=== PATIENT | female | born 1955 | race Caucasian/White ===

== ENCOUNTER 2020-08-30 19:59 | Observation (INO) | payer MEDICARE, OTHER ==
[~2020-08-30] VITALS: Ht 152.4 cm; Wt 64.4 kg
[2020-08-30 22:15] VITALS: BP 128/65
[2020-08-31 04:00] VITALS: BP 138/63
[2020-08-31] MEDS ORDERED: METOPROLOL SUC100 MG PO (04:16)
[2020-08-31] MEDS ORDERED: ASA81BEC PO (04:16)
[2020-08-31] MEDS ORDERED: ATORVASTATIN CA80 MG PO (04:17)
[2020-08-31] MEDS ORDERED: METFORMIN HCL500 MG PO (04:18)
[2020-08-31] MEDS ORDERED: BRILINTA90 MG PO (04:18)
[2020-08-31] MEDS ORDERED: LOSARTAN POTASS50 MG PO (04:21)
[2020-08-31 08:00] VITALS: BP 112/56
[2020-08-31 09:29] LABS: ANION GAP 10 mmol/L (7-16); BUN 24 mg/dL (7-18); CALCIUM 8.8 mg/dL (8.5-10.1); CHLORIDE 103 mmol/L (98-107); CHOLESTEROL 120 mg/dL (<200); CO2 25 mmol/L (21-32); CREATININE 0.8 mg/dL (0.6-1.3); GLUCOSE 136 mg/dL (70-99); HDL CHOLESTEROL 35 mg/dL (>40); LDL CHOLESTEROL 59 mg/dL (<100); MAGNESIUM 2.1 mg/dL (1.8-2.4); POTASSIUM 3.6 mmol/L (3.5-5.1); SERUM ASSESSMENT Clear; SODIUM 138 mmol/L (136-145); TC:HDL 3.4 Ratio (Not establshd); TRIGLYCERIDE 133 mg/dL (<150); VLDL 27 mg/dL (<40)
[2020-08-31] MEDS ORDERED: NITROGLYCERIN0.4 MG SUBLING (10:26)
[2020-08-31] MEDS ORDERED: OMEPRAZOLE40 MG PO (10:26)
[2020-08-31 12:07] VITALS: BP 121/49
--- NOTE | 2020-08-31 12:41 | 2DMMODE ---
[place] [address] 2 D/M-MODE ECHOCARDIOGRAM Name: DARRELL HAIR Room: [address] M.R.#: [id number] Admission: 08/30/20 Attend Phys: Ash Ivey, Discharge: Date of : 53 Date of Service: 08/31/20 1240 Report #: [id number] THIS REPORT FOR: cc: Keyshawn Campbell MD, Syed MD Liston, Michael J. MD [facility] ~ APPROVED REPORT Study performed: 08/31/2020 10:10:48 EXAM: Comprehensive 2D, Doppler, and color-flow Echocardiogram Patient Location: In-Patient Room #: [facility] Status: routine BSA: 1.61 HR: 60 bpm BP: 112/56 mmHg Rhythm: NSR Other Information Study Quality: Good Indications Chest Pain 2D Dimensions IVSd: 12.48 (7-11mm) LVOT Diam: 20.48 (18-24mm) LVDd: 43.26 mm PWd: 11.23 (7-11mm) Ascending Ao: 35.25 (22-36mm) LVDs: 26.70 (25-40mm) Aortic Root: 33.66 mm Volumes Left Atrial Volume (Systole) LA ESV Index: 24.30 mL/m2 Aortic Valve AoV Peak Cyrus.: 1.19 m/s AO Peak Gr.: 5.68 mmHg LVOT Max P.67 mmHg AO Mean Gr.: 3.83 mmHg LVOT Mean P.50 mmHg LVOT Max V: 1.08 m/s AO V2 VTI: 27.79 cm LVOT Mean V: 0.73 m/s RYAN (VTI): 3.17 cm2 LVOT V1 VTI: 26.76 [place] [address] 2 D/M-MODE ECHOCARDIOGRAM Name: DARRELL HAIR Room: [address]#: [id number] Admission: 08/30/20 Attend Phys: Ash Ivey, Discharge: Date of : 53 Date of Service: 08/31/20 1240 Report #: [id number] Mitral Valve E/A Ratio: 0.63 MV Decel. Time: 356.48 ms MV E Max Cyrus.: 0.53 m/s MV PHT: 103.38 ms MVA (PHT): 2.13 cm2 TDI E/Lateral E': 7.57 E/Medial E': 8.83 Medial E' Cyrus.: 0.06 m/s Lateral E' Cyrus.: 0.07 m/s Pulmonary Valve PV Peak Cyrus.: 0.87 m/s PV Peak Gr.: 3.01 mmHg Left Ventricle The left ventricle is normal size. There is normal LV segmental wall motion. Mild concentric left ventricular hypertrophy. Left ventricular systolic function is normal. LVEF is 60-65%. Grade I - abnormal relaxation pattern. Right Ventricle The right ventricle is normal size. The right ventricular systolic function is normal. Atria The left atrium size is normal. The right atrium size is normal. Aortic Valve The aortic valve is normal in structure. No aortic regurgitation is present. There is no aortic valvular stenosis. Mitral Valve The mitral valve is normal in structure. There is no mitral valve regurgitation noted. No evidence of mitral valve stenosis. Tricuspid Valve The tricuspid valve is normal in structure. Unable to assess PA pressure. Trace tricuspid regurgitation. Pulmonic Valve The pulmonary valve is normal in structure. Trace pulmonic regurgitation[place] [address] 2 D/M-MODE ECHOCARDIOGRAM Name: DARRELL HAIR Room: [address]#: [id number] Admission: 08/30/20 Attend Phys: Ash Ivey, Discharge: Date of : 53 Date of Service: 08/31/20 1240 Report #: [id number] The aortic root is normal in size. IVC is normal in size and collapses >50% with inspiration. Pericardium There is no pericardial effusion. <Conclusion> The left ventricle is normal size. Mild concentric left ventricular hypertrophy. Left ventricular systolic function is normal. LVEF is 60-65%. Grade I - abnormal relaxation pattern. Trace tricuspid regurgitation. Trace pulmonic regurgitation. IVC is normal in size and collapses >50% with inspiration. <ELECTRONICALLY SIGNED> By: Narinder Sterling MD, FACC 08/31/20 1240 1240 1240 Narinder Sterling MD, FACC /INF
--- NOTE | 2020-08-31 12:44 | EKG ---
[place] [address] ELECTROCARDIOGRAM REPORT Name: DARRELL HAIR Room: [address]#: [id number] Admission: 08/30/20 Attend Phys: Ash Ivey, Discharge: Date of : 53 Date of Service: 08/30/20 2245 Report #: [id number] THIS REPORT FOR: //name// [facility] Test Date: 2020-08-30 Test Time: 22:45:12 Pat Name: DARRELL HAIR Department: Room: [address] Gender: F [employer] Umpire: THOWARD3 : 1955 Requested By: Ash Ivey Order Number: [id number] Ruma MD: Narinder Sterling Measurements Intervals [place] Rate: 53 P: 70 DE: 220 QRS: 39 QRSD: 85 T: 70 QT: 473 QTc: 445 Interpretive Statements Sinus rhythm Prolonged DE interval Anteroseptal infarct, old, possible No previous ECG available for comparison Electronically Signed On 08-31-2020 12:44:38 [employer] by Narinder Sterling [email or web address] <ELECTRONICALLY SIGNED> By: Narinder Sterling MD, FACC 08/31/20 1244 2245 2245 Narinder Sterling MD, [facility] /EPI
--- NOTE | 2020-08-31 14:54 | CON ---
[address] [address] CONSULTATION Name: DARRELL HAIR Room: [address] M.R.#: [id number] Admission: 08/30/20 Attend Phys: Ash Ivey MD Discharge: Date of : 53 Report #: [id number] THIS REPORT FOR: cc: Keyshawn Campbell MD, Syed MD ~ Narinder Sterling MD [facility] CONS[facility] INDICATION: Chest pain. HISTORY OF PRESENT ILLNESS: The patient is a very pleasant 65-year-old female with history of myocardial infarction with intervention at [facility] in 04/2020. She reports no issues subsequent to that until now. Last night, she had some midsternal chest discomfort for which she presented to outside Emergency Room with complaints of chest pain. She was given sublingual nitroglycerin with relief of her pain. She was transferred here for further telemetry monitoring. The patient's initial enzymes are negative x 3. Her EKG shows sinus rhythm without acute ST or T-wave abnormality. There are Q-waves in leads V1 and V2, possibly consistent with prior anteroseptal infarct. At the time of interview, she is in no distress and denies chest pain. She is not having any shortness of breath or orthopnea. She is without other cardiac complaint. PAST MEDICAL HISTORY: 1. Coronary artery disease. 2. Hypertension. 3. Hyperlipidemia. 4. Myocardial infarction in 04/2020. 5. Hepatitis C. 6. Cirrhosis. 7. Type 2 diabetes mellitus. FAMILY HISTORY: Noncontributory. SOCIAL HISTORY: The patient smokes cigarettes. She denies use of alcohol. PHYSICAL EXAMINATION: VITAL SIGNS: Blood pressure 112/56, pulse is 65 and regular. GENERAL: This is a pleasant female, in no distress. Mood and affect appropriate. HEENT: Extraocular muscles intact. Mucous membranes are moist. NECK: Shows no jugular venous distention. There are no carotid bruits. CHEST: Reveals clear lung pandey. I do not appreciate wheezes or rales. CARDIOVASCULAR: Reveals a regular rhythm with normal S1 and S2. I do not [place] [address] CONSULTATION Name: DARRELL HAIR Room: [address]#: [id number] Admission: 08/30/20 Attend Phys: Ash Ivey MD Discharge: Date of : 53 Report #: [id number] ABDOMEN: Reveals normal bowel sounds. The abdomen is soft and nontender. Bowel sounds present. EXTREMITIES: Shows no edema. SKIN: Dry. LABORATORY DATA: A 12-lead EKG shows sinus rhythm with no significant ST-segment depression or elevation. There are Q-waves in leads V1 and V2. Labs are reviewed. Troponins are less than 0.06 x3. IMPRESSION AND RECOMMENDATIONS: 1. Chest discomfort, concerning for unstable angina. There is no enzymatic or EKG evidence of myocardial infarct at this time. We will proceed with noninvasive stress testing and echocardiogram to further evaluate. Further intervention will be pending the results of those studies. 2. Hypertension, presently stable on current regimen. 3. Dyslipidemia. Continue current medications. Fasting lipid profile has been ordered and is pending. 4. Diabetes. Treatment per hospitalist and primary care physician. <ELECTRONICALLY SIGNED> By: Narinder Sterling MD, FACC 08/31/20 1454 0913 0933Narinder Sterling MD, FACC /nt
--- NOTE | 2020-08-31 17:06 | CARDNUC ---
[place] [address] CARDIAC NUCLEAR IMAGING REPORT Name: DARRELL HAIR Room: [address] M.R.#: [id number] Admission: 08/30/20 Attend Phys: Ash Ivey, Discharge: Date of : 53 Date of Service: 08/31/20 1705 Report #: [id number] THIS REPORT FOR: cc: Keyshawn Campbell MD, Syed MD Liston,Narinder Garzon MD [facility] ~ APPROVED REPORT Imaging Protocol: Stress Tc-99m/Rest Tc-99m 1 day Study performed: 08/31/2020 09:09:00 Indication: CAD htn Patient Location: In-Patient Room #: 228 Stress Tech: Geeta Sebastian Stress Nurse: Roz Guillen RN Ht: 5 ft 0 in Wt: 142 lbs BSA: 1.61 m2 BMI: 27.72 Medical History Medical History: CAD s/p AK, CAD s/p stent, Current Smoker, Diabetes, HTN, Hyperlipidemia Medications: ticagrelor, asa 81, atorvastatin, losartan, metoprolol, ntg Allergies: No known drug allergies Cardiac Risk Factors: Age, Current Smoker, DM, HTN, Hyperlipidemia Previous Cardiac Procedures: PCI, Myocardial infarction Exercise History: Sedentary Meds Held (24 hrs): metoprolol Resting Data Rest SPECT myocardial perfusion imaging was performed in supine position 30 minutes following the intravenous injection of 10.3 mCi of Tc-99m Sestamibi. Time of rest injection: 14:00 The images were gated to evaluate regional wall motion and calculate left ventricular ejection fraction. Administration Route: IV Administration Site: Right AC Pharmacologic Stress Pharmacologic stress test was performed by injecting Regadenoson 0.4 [place] [address] CARDIAC NUCLEAR IMAGING REPORT Name: DARRELL HAIR Room: [address]#: [id number] Admission: 08/30/20 Attend Phys: Ash Ivey, Discharge: Date of : 53 Date of Service: 08/31/20 1705 Report #: [id number] mg IV push over 10-15 seconds immediately followed by the intravenous injection of 33.5 mCi of Tc-99m Sestamibi. Time of stress injection: 15:40 Administration Route: IV Administration Site: Right AC Heart Rate at time of stress injection: 94 bpm. Gated Stress SPECT was performed 40 minutes after stress injection. The images were gated to evaluate regional wall motion and calculate left ventricular ejection fraction. Prone imaging was performed. Stress Test Details Stress Test: Pharmacologic stress testing performed using 0.4 mg of regadenoson per 5 mL given IV over 10 seconds. HR Max Heart Rate (APMHR): 154 bpm Resting HR: 58 bpm Target HR (85% APMHR): 130 bpm Max HR Achieved: 94 bpm % of APMHR: 61 Recovery HR: 85 bpm BP Resting BP: 115/63 mmHg Max BP: 115/66 mmHg Recovery BP: 130/67 mmHg ECG Resting ECG: Sinus Rhythm Stress ECG: Sinus Rhythm ST Change: None Arrhythmia: None Recovery ECG: Sinus Rhythm Recovery ST Change: None Recovery Arrhythmia: None Clinical Reason for Termination: Completed protocol The patient tolerated Lexiscan infusion without significant cardiac symptoms. Stress ECG Conclusion The baseline twelve-lead EKG shows sinus rhythm without significant ST segment or T wave abnormality. EKGs obtained during and post exercise show sinus rhythm with no significant ST segment or T wave changes when compared [place] [address] CARDIAC NUCLEAR IMAGING REPORT Name: DARRELL HAIR [address] [id number] Admission: 08/30/20 Attend Phys: Ash Ivey, Discharge: Date of : 53 Date of Service: 08/31/20 1705 Report #: [id number] Study Quality Study: Excellent Artifact: Mild Breast artifact Lung Uptake: Normal Study Data At rest, the left ventricular ejection fraction was 86%.. Post stress, the left ventricular ejection was 82%.. TID = 1.26. Perfusion Perfusion images obtained in the supine position at rest and post Lexiscan stress show very mild photopenia in the mid to distal anterior wall that resolves completely with post-rest prone imaging consistent with mild breast attenuation artifact. No other significant fixed or reversible defects are identified. Wall Motion Normal left ventricular wall motion. Nuclear Conclusion ECG Findings: negative for ischemia Clinical Findings: negative for ischemia Nuclear Findings: negative for ischemia Exercise Capacity: not assessed Left Ventricular Function: normal Risk Study: low Perfusion images show no defect to suggest infarct or ischemia. Left ventricular systolic function appears normal on gated studies. This is a low risk study. <Conclusion> The baseline twelve-lead EKG shows sinus rhythm without significant ST segment or T wave abnormality. EKGs obtained during and post exercise show sinus rhythm with no significant ST segment or T wave changes when compared to baseline. <ELECTRONICALLY SIGNED> By: Narinder Sterling MD, FACC 08/31/201704 04 04 Narinder Sterling MD, FACC /INF
[2020-08-31 17:12] VITALS: BP 121/49
[2020-09-01 02:10] LABS: GLYCOHEMOGLOBIN (HGB A1C) 7.2 % (4.8-5.6)
== END 2020-08-31 17:36 | disposition home or self-care (01) ==
LOC: M.REH 19:59 → M.2W 22:07
PROVIDERS: ADMIT Internal Medicine; ATTEND Internal Medicine
DX: R07.89 Other chest pain (principal); I10 Essential (primary) hypertension; E78.5 Hyperlipidemia, unspecified; I25.10 Atherosclerotic heart disease of native coronary artery without angina pectoris; I25.2 Old myocardial infarction; E11.9 Type 2 diabetes mellitus without complications; B19.20 Unspecified viral hepatitis C without hepatic coma; K74.60 Unspecified cirrhosis of liver; K21.9 Gastro-esophageal reflux disease without esophagitis; F17.210 Nicotine dependence, cigarettes, uncomplicated; Z79.84 Long term (current) use of oral hypoglycemic drugs; Z79.82 Long term (current) use of aspirin; Z79.899 Other long term (current) drug therapy